=== PATIENT | female | born 1950 | race Caucasian/White ===

== ENCOUNTER 2021-05-04 08:44 | Outpatient (CLI) | payer MEDICARE, SELFPAY ==
--- NOTE | ~2021-05-04 | MM_ITS ---
EXAMINATION: MM screening donny BI w maia HISTORY: Screening. History of bilateral breast cancer. Previous bilateral lumpectomies with radiatio n therapy. TECHNIQUE: Craniocaudal and mediolateral oblique 3-D tomosynthesis images were obtained and synthetic 2-D images were generated. CAD analysis was submitted and interpreted. COMPARISON: No prior mammogram is available for comparison at this institution. BREAST PARENCHYMAL COMPOSITION: There are scattered areas of fibroglandular density. FINDINGS: There is architectural distortion with nearby calcifications in the lower outer quadrant of the left breast. There is architectural distortion in the upper outer quadrant of the left breast, m iddle third. IMPRESSION: 1. Bilateral architectural distortion, likely related to prior lumpectomy/radiation therapy change, a lthough comparison to previous mammograms recommended. 2. Comparison to previous outside mammograms recommended. BI-RADS Category 0: Incomplete: Needs additional imaging evaluation. Reviewed, dictated and finalized at location A. IMPRESSION: 1. Bilateral architectural distortion, likely related to prior lumpectomy/radia tion therapy change, although comparison to previous mammograms recommended. 2. Comparison to previous outside mammograms recommended. BI-RADS Category 0: Incomplete: Needs additional imaging evaluation.
== END 2021-05-04 08:45 | disposition home or self-care (01) ==
PROVIDERS: PCP Family Medicine; Visit Provider Family Medicine
DX: Z12.31 Encounter for screening mammogram for malignant neoplasm of breast (principal); R92.8 Other abnormal and inconclusive findings on diagnostic imaging of breast
CPT/HCPCS: 77063; 77067

== ENCOUNTER 2021-06-11 08:59 | Outpatient (CLI) | payer MEDICARE, SELFPAY ==
--- NOTE | ~2021-06-11 | DEXA_ITS ---
Bone Density Report Name: Faby Cotter Age: 71 Sex: Female Ethnicity: White Date of : 1950 Indication: postmenopausal; height loss; prior fracture; cancer; Referring Provider: Pauline Alba Study: Bone densitometry was performed. Exam Date: June 11, 2021 Accession number: [id number] Bone Density: Region BMD T-score Z-score Classification AP Spine (L1-L4) 1.068 0.2 2.3 Normal Femoral Neck (Left) 0.851 0.0 1.8 Normal Total Hip (Left) 1.036 0.8 2.2 Normal Total Hip Bilateral Avg 1.011 0.6 2.0 Normal Femoral Neck (Right) 0.836 -0.1 1.6 Normal Total Hip (Right) 0.985 0.4 1.8 Normal World Health Organization criteria for BMD impression classify patients as: Normal (T-score at or above -1.0), Osteopenia (T-score between -1.0 and -2.5), or Osteoporosis (T-score at or below -2.5). 10-year Fracture Risk: FRAX not reported because: All T-scores for Spine Total, Hip Total, Femoral Neck at or above -1.0 Clinical Information Provided by Patient: Has had a low trauma fracture Has used the following medications: Vitamin D Has the following medical conditions: Cancer Patient maximum height was 68 Menopause Age: 57 Drinks caffeinated beverages Onset of menses at age 15 Number of children 1 Impression: The patient has normal bone mass. The patient has risk factors, including: previous fracture. Discussion: BONE DENSITY IS ABOVE THE MINIMUM DESIRABLE LEVEL AT ALL SKELETAL SITES TESTED. This patient?s bone mineral density is above the minimum desirable level (T-score -1.0 or better) at all sites measured. The patient should follow a healthful lifestyle (good nutrition with adequate calcium and vitamin D, and appropriate weight-bearing exercise). Follow-Up: Consider repeating this study in 5 years or sooner if there is some new clinical indication. Reported by: [facility] on 06/11/2021 9:20:00 AM. Reviewed, dictated and finalized at location ALina STUBBS
== END 2021-06-11 09:00 | disposition home or self-care (01) ==
LOC: ANHIMG 09:00
PROVIDERS: PCP Family Medicine; Visit Provider Family Medicine
DX: Z78.0 Asymptomatic menopausal state (principal)
CPT/HCPCS: 77080

== ENCOUNTER 2022-08-12 09:41 | Outpatient (CLI) | payer MEDICARE, SELFPAY ==
--- NOTE | ~2022-08-12 | MM_ITS ---
EXAMINATION: MM screening [facility] BI w maia HISTORY: Screening mammogram, history of bilateral breast cancer TECHNIQUE: Craniocaudal and mediolateral oblique 3-D tomosynthesis images were obtained and synthetic 2-D images were generated. CAD analysis was submitted and interpreted. COMPARISON: 05/04/2021, 01/24/2020, 12/31/2018 BREAST PARENCHYMAL COMPOSITION: There are scattered areas of fibroglandular density. FINDINGS: There are stable architectural distortion in both breasts at the site of prior lumpectomy. No suspicious mass, calcification, or architectural distortion are identified in either breast to sug gest malignancy. There has been no suspicious interval change. IMPRESSION: 1. No mammographic evidence of malignancy. 2. Recommend routine screening mammography in one year. BI-RADS Category 2: Benign finding(s). Reviewed, dictated and finalized at location A. [employer]
== END 2022-08-12 09:42 | disposition home or self-care (01) ==
PROVIDERS: PCP Family Medicine; Visit Provider Family Medicine
DX: Z12.31 Encounter for screening mammogram for malignant neoplasm of breast (principal)
CPT/HCPCS: 77063; 77067

== ENCOUNTER 2023-08-01 08:33 | Outpatient (CLI) | payer MEDICARE, SELFPAY ==
--- NOTE | 2023-08-21 20:34 | WPDHOMESLEEP ---
Sleep Study - Home Unattended Date of Study: 08/01/23 Ordering Provider: Pauline Alba DO Interpreting Provider: Darby Issa DO Home Sleep Study Type: Watch PAT Height: 1.7 m Weight: 87.09 kg Body Mass Index: 30.0 Neck Circumference (inches): 14 Baxter: 5 Reason for Sleep Study Snoring, daytime hypersomnia Sleep History The patient is a 73-year-old with hypertension, hyperlipidemia, diabetes and anxiety that had a sleep study ordered by her primary care physician for evaluation of sleep apnea. The patient denies awakening from sleep short of breath. She frequently awakens at night with heartburn, belching or cough. She constantly snores and is frequently loud enough that others complain. She frequently has trouble sleeping when she has a cold. She denies waking up gasping for air throughout the night. She rarely has breathing problems at night observed by herself or others. She occasionally sweats excessively at night. He denies having heart palpitations or irregular heartbeats during the night. She constantly falls asleep during the day but never while driving. She denies sleep paralysis and cataplexy. She rarely has trouble at school or work due to sleepiness. She occasionally experiences vivid dreamlike scenes upon awakening or falling asleep. She denies feeling afraid of going to sleep. She occasionally has nightmares. She frequently remembers her dreams. She occasionally has thoughts racing through her mind. She occasionally feels sad, depressed and anxious. She frequently has muscular tension. She denies noticing parts of her body jerk. She rarely kicks during the day. She occasionally has crawling and aching feelings in her legs and frequently has leg pain during the night. She constantly grinds her teeth during sleep but rarely awakens with morning jaw pain. She is frequently bothered by pain during the day and occasionally awakened by pain during the night. She frequently wakes up feeling stiff in the morning. She occasionally wakes up with sore or achy muscles. She frequently wakes up with pain in the neck, spine or other joints. She goes to bed at 11:00 p.m. on both weekdays and weekends. It takes her 10-15 minutes to fall asleep. She wakes up 3 times throughout the night for unknown reasons. When she awakens, she will try to go back to sleep or watch television. It can take her a few minutes up to several hours to fall back asleep. She wakes up at 8:00 a.m. on both weekdays and weekends. She typically gets 8 hours of sleep per night. She will stay in bed for 5-10 minutes after waking up in the morning. She currently lives with her . She denies consuming any caffeinated beverages within 2 hours of bedtime. She denies engaging in physical exercise before bedtime. She will occasionally read before falling asleep and she will watch television before falling asleep. She will take naps in the afternoon or the evening but they are not refreshing. She consumes 2 caffeinated beverages per day. She denies tobacco, alcohol and recreational drug use. [facility] Past Medical History Medical History Cancer Hepatitis C antibody test negative (12/12/18) Surgical History Surgical History History of colonoscopy (~06/2017) Family History Family History Father Alzheimer disease Mother Breast cancer Liver cancer Social History Social History Smoking status: Never smoker Second hand tobacco smoke exposure: No Alcohol intake: current Alcohol use details: rarely Substance use: never Substance use type: does not use Lack of Transportation: No Lack of Food: Never True Current Housing: I Have Housing Concerned About Future Housing: No Difficulty Payi
== END 2023-08-02 08:37 | disposition home or self-care (01) ==
LOC: ANHCSM 08:34
PROVIDERS: PCP Family Medicine; Visit Provider Family Medicine
DX: R40.0 Somnolence (principal); R06.83 Snoring; G47.33 Obstructive sleep apnea (adult) (pediatric)
CPT/HCPCS: 95800

== ENCOUNTER 2023-11-16 08:09 | Outpatient (CLI) | payer MEDICARE, SELFPAY ==
--- NOTE | ~2023-11-16 | MM_ITS ---
EXAMINATION: MM screening donny BI w maia HISTORY: Screening mammogram TECHNIQUE: Craniocaudal and mediolateral oblique 3-D tomosynthesis images were obtained and synthetic 2-D images were generated. CAD analysis was submitted and interpreted. COMPARISON: Serial mammogram examinations dating back to 12/31/2018 BREAST PARENCHYMAL COMPOSITION: There are scattered areas of fibroglandular density. FINDINGS: There is bilateral asymmetry and architectural distortion in addition to left breast retrac tion; history of bilateral partial mastectomy for breast cancer. The right breast appears stable since 12/31/2018. However, there is interval increased density at mid depth at the mid to lower outer left breast and p rior partial mastectomy site since prior examinations. Recurrent malignancy is not excluded. Diagnost ic left mammogram and left breast ultrasound examination are recommended. IMPRESSION: 1. Increased density at the surgical site of left breast compared to previous studies; recurrent faviola gnancy is not excluded. 2. Diagnostic left mammogram and left breast ultrasound examination are recommended. BI-RADS Category 0: Incomplete: Needs additional imaging evaluation. Reviewed, dictated and finalized at location A. IMPRESSION: 1. Increased density at the surgical site of left breast compared to previous s tudies; recurrent malignancy is not excluded. 2. Diagnostic left mammogram and left breast ultrasound examination are recomme nded. BI-RADS Category 0: Incomplete: Needs additional imaging evaluation.
== END 2023-11-16 08:10 | disposition home or self-care (01) ==
PROVIDERS: PCP Family Medicine; Visit Provider Family Medicine
DX: Z12.31 Encounter for screening mammogram for malignant neoplasm of breast (principal); R92.8 Other abnormal and inconclusive findings on diagnostic imaging of breast
CPT/HCPCS: 77063; 77067

== ENCOUNTER 2023-11-29 09:00 | Outpatient (RCR) | payer MEDICARE, SELFPAY ==
--- NOTE | 2023-11-01 17:14 | OPREHPOC ---
Outpatient Therapy Plan of Care This is a Multidisciplinary Plan of Care that may contain components documented by all disciplines (PT, OT, and ST.) PT Problem 1 PT Problem #1 Knowledge Deficit PT Goal 1 Goal Pt to be IND with issued HEP Target Visit 10 PT Problem 2 PT Problem #2 Pain PT Goal 1 Goal Pt to report back pain no greater than 3/10 in the last week. Target Visit 10 PT Goal 2 Goal Pt to report 75% improvement in overall symptoms Target Visit 10 PT Problem 3 PT Problem #3 Impaired Functional Mobil PT Goal 1 Goal Pt to demonstrate 20lb lift and carry without an increase in pain Target Visit 10 PT Goal 2 Goal Pt to improve Oswestry score from 14/50 to 5/50 Target Visit 10
--- NOTE | 2023-11-01 17:14 | PTOPEVAL1 ---
Assessment and note entered by Britany Alexander, PT, DPT Evaluation Information Assessment Status Evaluation Diagnosis low back pain Subjective Information Pt reports chronic mild low back pain and occasionally in her jonn hips. She states it feels difficult to sit up straight d/t tightness and weakness. She states she is limited to a mile of walking before pain prevents her. She also reports neck and shoulder pain and states she has always had poor posture. She reports an increase in pain with prolonged standing, particularly cooking. Pt reads a lot, exercises 3x/wk, and gardens. Reported Pain Level Pain Score 5: Self Report Assessment PT Clinical Summary Faby presents to therapy today for her initial evaluation with a diagnosis of low back pain. Today she demonstrates good lumbar ROM, LE ROM, and LE strength. She demonstrates poor core strength and posture. Presents with an increase thoracic kyphosis, a forward head, upper cervical hyperextension, anterior pelvic tilt, and decreased core engagement when standing. Skilled therapy services are indicated to improve thoracic and cervical mobility, core strength, and body mechanics, to manage pain, and to improve overall functional mobility. Plan of Care Interventions Electrical Stimulation,Gait Training,Hot Pack/Cold Pack,Manual Therapy,Neuro Re-education,Patient/ Caregiver Educati,Therapeutic Activities, Therapeutic Exercise PT Services Indicated Yes Treatment Frequency and 2x/wk for 10 visits Duration These treatments will address the objective and functional deficits as defined above. The patient will be advanced safely and appropriately in order for the patient to progress towards his/her prior level of function. Additional exercises will be introduced and as well as a comprehensive home exercise program upon discharge, if needed, ?to ensure carryover of functional gains achieved in the clinic. This treatment plan has been reviewed and agreement upon by the patient.
--- NOTE | 2023-11-29 09:46 | PTOPDC ---
Assessment and note entered by Britany Alexander, PT, DPT Evaluation Information Assessment Status Discharge Diagnosis low back pain Subjective Information Pt states things are going well. She feels like she has learned a lot and knows how to avoid her pain most of the time. She states she has been doing functional tasks around her home and has not had pain like she did before. She states she has been able to work for an hour recently. Reported Pain Level Pain Score 0: Self Report Assessment PT Clinical Summary Faby presents to therapy today for her progress report following 8 visits of skilled therapy to treat her diagnosis of low back pain. Today she demonstrates improve stability with functional tasks, improved body awareness, and improved lifting mechanics. She has met all of her therapy goals at this time and no longer requires skilled services. She will be discharged at this time.
== END 2023-11-29 13:12 | disposition home or self-care (01) ==
LOC: ANHGOSHPT 09:00
PROVIDERS: PCP Family Medicine; Visit Provider Nurse Practitioner
DX: M54.50 Low back pain, unspecified (principal)
CPT/HCPCS: 97110; 97161; 97530

== ENCOUNTER 2023-12-06 13:16 | Outpatient (CLI) | payer MEDICARE, SELFPAY ==
--- NOTE | ~2023-12-06 | MMUS_ITS ---
EXAMINATION: MM diagnostic donny LT w maia, US breast LT limited HISTORY: Increasing density of postbiopsy site of the left breast TECHNIQUE: Additional 3-D tomosynthesis images of the left breast were performed and synthetic 2-D im ages were generated. CAD analysis was submitted and interpreted. High resolution Limited left breast ultrasound was performed. COMPARISON: Comparison to multiple prior studies sequentially, with oldest reviewed study dated 05/04. BREAST PARENCHYMAL COMPOSITION: Not dense: There are scattered areas of fibroglandular density. FINDINGS: MAMMOGRAPHIC FINDINGS: There is increasing masslike appearance and density of area of architectural distortion in the mid ou ter aspect of the left breast, corresponding to prior surgical biopsy site. There are stable nearby c alcifications. ULTRASOUND: Limited left breast ultrasound: At 3:00, 2 cm from the nipple there is an irregular shaped hypoechoic mass with dense posterior shadowing. The exact margins are indistinct limiting measurement. IMPRESSION: 1. Increasing masslike appearance and density of architectural distortion mid outer aspect of the lef t breast. 2. Recommend further evaluation with biopsy. BI-RADS category 4, suspicious findings. Reviewed, dictated and finalized at location A. IMPRESSION: 1. Increasing masslike appearance and density of architectural distortion mid o uter aspect of the left breast. 2. Recommend further evaluation with biopsy. BI-RADS category 4, suspicious findings.
== END 2023-12-06 13:17 | disposition home or self-care (01) ==
LOC: ANHIMG 13:18
PROVIDERS: PCP Family Medicine; Visit Provider Family Medicine
DX: N63.23 Unspecified lump in the left breast, lower outer quadrant (principal); R92.8 Other abnormal and inconclusive findings on diagnostic imaging of breast
CPT/HCPCS: 76642; 77061; 77065; G0279

== ENCOUNTER 2023-12-21 10:00 | Outpatient (RCR) | payer MEDICARE, SELFPAY ==
[2023-10-31 13:04] VITALS: BMI 30.7
[2023-10-31 13:07] VITALS: BMI 30.7
[2023-12-21 09:55] VITALS: BMI 29.0
[2023-12-21 10:34] VITALS: BMI 29.0
== END 2024-01-29 23:59 | disposition home or self-care (01) ==
LOC: ANHDMC 10:00
PROVIDERS: PCP Family Medicine; Visit Provider Family Medicine
DX: E11.9 Type 2 diabetes mellitus without complications (principal); Z71.3 Dietary counseling and surveillance
CPT/HCPCS: 97802; 97803

== ENCOUNTER 2024-01-15 08:40 | Outpatient (CLI) | payer MEDICARE, SELFPAY ==
--- NOTE | ~2024-01-15 | MMUS_ITS ---
EXAMINATION: US GUIDED NEEDLE BIOPSY DATE: 01/15/2024 10:08 CDT INDICATION: Left 3:00 breast mass 2 cm from nipple TECHNIQUE AND FINDINGS: The risks and potential benefits of the procedure were discussed with the patient, and written inform ed consent was obtained. Timeout procedure was performed. After sterile preparation of the left breas t, 1% lidocaine was utilized for local anesthesia. A 12 G spring-loaded biopsy gun needle was advanced to the edge of the region of interest from an inf erior approach utilizing sonographic guidance. A total of 4 tissue core samples were obtained throug h the lesion. An Inrad tissue marker clip was then placed at the biopsy site. Hemostasis was achieve d. A sterile bandage was applied. The patient tolerated procedure well and there was no evidence of immediate complication. The patien t was given verbal instructions prior to departing from the department. A two view mammogram was perf ormed to document tissue marker clip placement. The tissue samples were submitted to surgical patholo gy for histologic analysis. IMPRESSION: Ultrasound guided biopsy of left 3:00 breast mass with biopsy marker placement. Please refer to patho logy report for histologic analysis. Reviewed, dictated and finalized at Location A. Reviewed, dictated and finalized at location A. IMPRESSION: Ultrasound guided biopsy of left 3:00 breast mass with biopsy marker placement. Please refer to pathology report for histologic analysis.
== END 2024-01-15 08:41 | disposition home or self-care (01) ==
PROVIDERS: PCP Family Medicine; Visit Provider Nurse Practitioner
DX: N63.23 Unspecified lump in the left breast, lower outer quadrant (principal)
CPT/HCPCS: 19083; 88305; 88342; A4648

== ENCOUNTER 2024-06-20 09:39 | Outpatient (CLI) | payer MEDICARE, SELFPAY ==
--- NOTE | ~2024-06-20 | XR_ITS ---
EXAMINATION: XR chest 2V 06/20/2024 09:56 INDICATION: Cough PROCEDURE: 2 view chest COMPARISON: No prior studies for comparison. FINDINGS: The lungs are clear. Mildly elevated left diaphragm. The cardiomediastinal silhouette is wi thin normal limits. There are no pleural effusions. There is no pneumothorax suspected. IMPRESSION: 1: NO ACUTE CARDIOPULMONARY DISEASE. Reviewed, dictated and finalized at location B.
== END 2024-06-20 09:40 | disposition home or self-care (01) ==
LOC: GOSHIMG 09:40
PROVIDERS: PCP Family Medicine; Visit Provider Nurse Practitioner
DX: R05.9 Cough, unspecified (principal)
CPT/HCPCS: 71046

== ENCOUNTER 2024-06-24 07:48 | Outpatient (CLI) | payer MEDICARE, SELFPAY | END 2024-06-24 07:49 | disposition home or self-care (01) | LOC: ANHAUDASC 07:49 | PROVIDERS: PCP Family Medicine; Visit Provider Nurse Practitioner | DX: H61.21 Impacted cerumen, right ear (principal) | CPT/HCPCS: 92557; 92567 ==